=== PATIENT | male | born 1985 | race Two or more races ===

== ENCOUNTER 2018-07-18 16:54 | Emergency (ER) | payer SELFPAY ==
[2018-07-18 17:07] VITALS: BP 128/83
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
== END 2018-07-18 17:44 | disposition home or self-care (01) ==
LOC: JD.ED 16:54
DX: K08.89 Other specified disorders of teeth and supporting structures (principal)
CPT/HCPCS: 99283

== ENCOUNTER 2018-07-18 22:58 | Emergency (ER) | payer SELFPAY ==
[2018-07-18 23:29] VITALS: BP 133/83
[2018-07-19] MEDS ORDERED: cefTRIAXone 1 GM, Lidocaine 1% 2.1 ML IM SCH ×2
[2018-07-19] MEDS ORDERED: Ketorolac 60 MG/2 ML SDV IM ONE (00:01)
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
== END 2018-07-19 00:17 | disposition home or self-care (01) ==
LOC: JD.ED 22:58
DX: K04.7 Periapical abscess without sinus (principal)
CPT/HCPCS: 96372; 99282; J0696; J1885

== ENCOUNTER 2019-02-21 05:53 | Emergency (ER) | payer SELFPAY ==
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
[2019-02-21 08:17] VITALS: BP 117/69
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
== END 2019-02-21 08:20 | disposition home or self-care (01) ==
LOC: JD.ED 05:53
DX: R07.89 Other chest pain (principal); Z90.49 Acquired absence of other specified parts of digestive tract
CPT/HCPCS: 36415; 36600; 71046; 71046-26; 80053; 81001; 82803; 83735; 83880; 84443; 84484; 85007; 85027; 85379; 93005; 93010; 99284; 99285-25

== ENCOUNTER 2019-03-10 22:04 | Emergency (ER) | payer SELFPAY ==
[2019-03-10 22:28] VITALS: BP 133/86; PULSE 63
--- NOTE | 2019-03-10 23:09 | EDM.PDOC ---
ED HPI GENERAL MEDICAL PROBLEM - General Chief Complaint: Abdominal Pain Stated Complaint: abdominal pain Time Seen by Provider: 03/10/19 23:09 Source of Information: Reports: Patient History Limitations: Reports: No Limitations - History of Present Illness INITIAL COMMENTS - FREE TEXT/NARRATIVE: 34-year-old male of [place] descent presents to the ED with a 2 to three-week history of recurrent left lower quadrant abdominal pain. He makes his pain worse by deep palpation in the left lower quadrant. He was seen in the clinic 9 days ago and placed on the 8 day course of Cipro 500 twice a day for suspected diverticulitis. He states however that it didn't make any difference in the pain. It has persisted. Her abscesses had a couple of loose stools. Typically is felt primarily in the left lower quadrant. No radiation to his back. His appetite is good and is been able to eat normally. No nausea or vomiting. No fever or chills. No previous abdominal surgery. She recently started himself on omeprazole 20 mg daily as he was developing gastritis from the amount of Motrin he was taking for pain relief. Is taking the Motrin for back pain as well. He's been having some left-sided chest pain. He had a previous spontaneous pneumothorax requiring thoracotomy many years ago. Fairly had a chest x-ray done in clinic which was normal. Onset: Unknown/Unsure (Has been having problems with intermittent left lower quadrant abdominal pain for 2-3 weeks.) Duration: Week(s):, Getting Worse Location: Reports: Abdomen (Left lower quadrant of the abdomen with no radiation.) Quality: Reports: Ache, Other (Vocational pain is sharp and stabbing with a colicky type component) Severity: Moderate Improves with: Reports: None Worsens with: Reports: Other (Nothing seems to make it worse.) Context: Reports: Other (Spontaneous occurrence). 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: Other (see below) (Just finished an 8 day course of Cipro 500 twice a day yesterday with no improvement in symptoms.) Left Lower Abdominal Pain Score (Numeric/FACES): 4 - Related Data Allergies Allergy/AdvReac Type Severity Reaction Status Date / Time No Known Allergies Allergy Verified 07/18/18 23:29 Home Meds: Home Meds Ibuprofen 200 mg PO DAILY 03/10/19 [History] Omeprazole 0 mg PO DAILY 03/10/19 [History] hydrOXYzine HCl [Hydroxyzine HCl] 25 mg PO BEDTIME 03/10/19 [History] Past Medical History - Past Health History Medical/Surgical History: Denies Medical/Surgical History HEENT History: Reports: None Cardiovascular History: Reports: None Respiratory History: Reports: Other (See Below) (Traumatic hemothorax) Other Respiratory History: Pt states that he had "his lung explode because of his rib." Gastrointestinal History: Reports: GERD, Hiatal Hernia Genitourinary History: Reports: None Other Genitourinary History: erectile disfunction Musculoskeletal History: Reports: None Neurological History: Reports: None Psychiatric History: Reports: None Endocrine/Metabolic History: Reports: None Hematologic History: Reports: None Immunologic History: Reports: None Oncologic (Cancer) History: Reports: None Dermatologic History: Reports: None - Infectious Disease History Infectious Disease History: Reports: None - Past Surgical History Head Surgeries/Procedures: Reports: None Respiratory Surgical History: Reports: Other (See Below) (Had a spontaneous pneumothorax on the left side and required closed thoracostomy drainage this was many years ago.) GI Surgical History: Reports: Appendectomy, Cholecystectomy, Hernia, Inguinal Social & Family History - Family History Family Medical History: Noncontributory - Tobacco Use Smoking Status *Q: Never Smoker - Caffeine Use Caffeine Use: Reports: Coffee - Recreational Drug Use Recreational Drug Use: No - Living Situation & Occupation Living situation: Reports: , with Spouse, with Family (1 child) 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 Denies: No Symptoms, Blood Pressure Problem ( Chronic problem), Claudication, Dyspnea on Exertion, Edema, Lightheadedness, Orthopnea Endocrine: Reports: No Symptoms GI/Abdominal: Reports: Abdominal Pain (Complains of intermittent left lower quadrant abdominal pain worse when he pushes deep on his left lower quadrant. He states he can make it go from a 4 to a 10 out of 10. It doesn't radiate through to his back.), Diarrhea, Nausea, Other. Denies: Constipation, Decreased Appetite, Difficulty Swallowing, Distension, Flatus (One loose bowel movement yesterday.), Hematemesis, Hematochezia, Melena, Stool Incontinence, Vomiting : Reports: No Symptoms (Gets a lot of heartburn.) Musculoskeletal: Reports: No Symptoms Skin: Reports: No Symptoms Neurological: Reports: No Symptoms Psychiatric: Reports: No Symptoms Hematologic/Lymphatic: Reports: No Symptoms Immunologic: Reports: No Symptoms ED EXAM, GI/ABD - Physical Exam Exam: See Below Exam Limited By: No Limitations General Appearance: Alert, WD/WN, No Apparent Distress, Other (Vital signs show he is afebrile temperatures 36.8. Pulse 63 and sinus respiratory to 16 O2 sats are 98% on room air BP is 133/86.) Eyes: Bilateral: Normal Appearance Throat/Mouth: Normal Inspection, Normal Lips, Normal Oropharynx, Other Head: Atraumatic (Tongue is moist ), Normocephalic Neck: Normal Inspection, Supple, Non-Tender, Full Range of Motion. No: Carotid Bruit, Lymphadenopathy (L), Lymphadenopathy (R) Respiratory/Chest: No Respiratory Distress, Lungs Clear, Normal Breath Sounds, No Accessory Muscle Use, Other (Has evidence of a thoracotomy wound left lateral chest.) Cardiovascular: Normal Peripheral Pulses, Regular Rate, Rhythm, No Edema, No Gallop, No Murmur, No Rub, Other (Patient have evidence of a laparoscopic cholecystectomy and appendectomy and apparently has had a right inguinal hernia raphe as well.) GI/Abdominal Exam: Normal Bowel Sounds, Soft, No Abnormal Bruit, Tender. No: Guarding, Rigid (Tenderness in the epigastrium on deep palpation and left lower quadrant of the abdomen without guarding or rebound.), Rebound (Male) Exam: No Hernia. No: Inguinal Lymphadenopathy Back Exam: Normal Inspection, Full Range of Motion, Other (No rib head subluxation identified no muscle spasm.). No: CVA Tenderness (L), CVA Tenderness (R) Extremities: Normal Inspection, Normal Range of Motion, Non-Tender, No Pedal Edema, Normal Capillary Refill Neurological: Alert, Oriented, CN II-XII Intact, Normal Cognition Psychiatric: Anxious Skin Exam: Warm, Dry, Intact, Normal Color, No Rash Course - Vital Signs Last Recorded V/S: Last Vital Signs Temp 36.8 C 03/10/19 22:23 Pulse 63 03/10/19 22:23 Resp 16 03/10/19 22:23 BP 133/86 03/10/19 22:23 Pulse Ox 98 03/10/19 22:23 - Orders/Labs/Meds Orders: Active Orders 24 hr Category Date Time Status Abdomen 1V Flat [CR] Stat Exams 03/10/19 23:08 Taken Abdomen Pelvis wo Cont [CT] Stat Exams 03/11/19 00:12 Taken THYROID PEROXIDASE (TPO) AB [REF] Stat Lab 03/11/19 01:45 Ordered Labs: Laboratory Tests 03/10/19 03/10/19 03/10/19 Range/Units 23:30 23:30 23:30 WBC 6.79 (4.23-9.07) K/mm3 RBC 5.11 (4.63-6.08) M/mm3 Hgb 14.7 (13.7-17.5) gm/L Hct 42.8 (40.1-51.0) % MCV 83.8 (79.0-92.2) fl MCH 28.8 (25.7-32.2) pg MCHC 34.3 (32.2-35.5) g/dl RDW Std Deviation 38.8 (35.1-43.9) fL Plt Count 240 (163-337) K/mm3 MPV 9.9 (9.4-12.3) fl Neutrophils % (Manual) 53 (40-60) % Band Neutrophils % 0 (0-10) % Lymphocytes % (Manual) 36 (20-40) % Atypical Lymphs % 0 % Monocytes % (Manual) 10 (2-10) % Eosinophils % (Manual) 1 (0.8-7.0) % Basophils % (Manual) 0 L (0.2-1.2) Platelet Estimate Adequate Plt Morphology Comment Normal RBC Morph Comment Normal Sodium 140 (136-145) mEq/L Potassium 4.2 (3.5-5.1) mEq/L Chloride 106 (98-107) mEq/L Carbon Dioxide 28 (21-32) mEq/L Anion Gap 10.2 (5-15) BUN 15 (7-18) mg/dL Creatinine 0.8 (0.7-1.3) mg/dL Est Cr Clr Drug Dosing 116.30 mL/min Estimated GFR (MDRD) > 60 (>60) mL/min BUN/Creatinine Ratio 18.8 H (14-18) Glucose 97 (74-106) mg/dL Calcium 9.0 (8.5-10.1) mg/dL Total Bilirubin 0.3 (0.2-1.0) mg/dL AST 16 (15-37) U/L ALT 33 (16-63) U/L Alkaline Phosphatase 76 (46-116) U/L C-Reactive Protein < 0.2 (<1.0) mg/dL Total Protein 7.0 (6.4-8.2) g/dl Albumin 4.0 (3.4-5.0) g/dl Globulin 3.0 gm/dL Albumin/Globulin Ratio 1.3 (1-2) Lipase 166 (73-393) U/L Free T4 1.01 (0.76-1.46) ng/dL TSH 3rd Generation 4.898 H (0.358-3.74) uIU/mL Meds: Medications Discontinued Medications Generic Name Dose Route Start Last Admin Trade Name Freq PRN Reason Stop Dose Admin Sodium Chloride 1,000 mls @ 150 mls/hr 03/10/19 23:15 03/10/19 23:29 Normal Saline IV 150 mls/hr ASDIRECTED FAM Administration Magnesium Citrate 240 ml 03/11/19 02:24 03/11/19 02:43 Citrate Of Magnesia PO 03/11/19 02:25 240 ml ONETIME ONE Administration - Radiology Interpretation Free Text/Narrative:: 34-year-old male presents to the ED with a 2 to three-week history of left lower quadrant abdominal pain. He has difficulty quantifying the pain. He states he can make it worse when he pushes deep in his left lower quadrant. Lysis pain is 4 out of 10 but he can make a tentatively pushes on his left lower quadrant. Phonation a day course of Cipro 500 twice a day with no improvement in his symptoms. History of confirm diverticulitis. He has chronic GERD aggravated recently by the amount of Motrin he's been taking for left- sided chest pain. He is improved after stopping taking the Motrin and taking omeprazole 20 mg daily for the last week. He believes he had one loose stool yesterday he's never passed blood per rectum. Examination reveals bowel active bowel sounds in all 4 quadrants. Benign abdomen on examination with no masses palpable left lower quadrant or left hemiabdomen. I question whether I can palpate his right hemicolon however. There is no inguinal adenopathy or hernias. Plan routine labs to be done. KUB and then proceed likely with CT of the abdomen to rule out diverticulitis. - Re-Assessments/Exams Free Text/Narrative Re-Assessment/Exam: 03/10/19 : 23:30: KUB reveals large amount of gas both in the small bowel and large bowel. There is increased stool throughout the right hemicolon and portions of the transverse colon. The descending colon and rectal vault appeared to be relatively empty. Proceed with CT of the abdomen with oral contrast. 03/11/19 01:46 White count is normal at 6.79. Differential is normal 53% neutrophils and no band cells. Hemoglobin is 14.7 with hematocrit of 42.8. Sodium 140 with potassium of 4.2. Chloride is 106 with a bicarbonate 28. And a gap is 10.2. BUN is 15 with a creatinine 0.8. Estimated GFR is greater than 60. Glucose is 97. Calcium is 9.0. Liver function is normal. C-reactive protein less than 0.2. Total protein is 7.0 with an albumin fraction of 4.0. Please is normal at 166. Free T4 is normal at 1.01. TSH however is mildly elevated at 4.898. Due to his elevated TSH in his complaints of right thyroid lobe pain. May be suffering acute thyroiditis. At present she is euthyroid with a normal free T4. Will have blood sent for thyroid peroxidase antibodies. CT of the abdomen has been completed. Visualized portion of his lungs are clear. He does have a moderate hiatal hernia. Reticulocyte silhouette is normal. Liver appears to be within normal limits without any intraductal dilatation. Gallbladder is absent. Pancreas appears normal. Spleen is mildly lobular but otherwise normal. Both kidneys appear to be within normal limits without any signs of obstructive uropathy. There is a large amount of stool throughout most of the colon intermixed with a lot of air. All bowel appears normal. Appendix is absent. Adrenals show no suspicious nodules. Patient's main problem with abdominal pain is therefore constipation. He will be treated with magnesium citrate 8 ounces by mouth 6 ounces of juice or Gatorade Powerade later this morning. Should provide bowel cleanse and relief of the abdominal pain. Departure - Departure Time of Disposition: 02:25 Disposition: Home, Self-Care 01 Condition: Fair Clinical Impression: Constipation by delayed colonic transit, Elevated TSH, Acute thyroiditis Abdominal pain Qualifiers: Abdominal location: left lower quadrant Qualified Code(s): R10.32 - Left lower quadrant pain GERD (gastroesophageal reflux disease) Qualifiers: Esophagitis presence: with esophagitis Qualified Code(s): K21.0 - Gastro- esophageal reflux disease with esophagitis - Discharge Information *PRESCRIPTION DRUG MONITORING PROGRAM REVIEWED*: Not Applicable *COPY OF PRESCRIPTION DRUG MONITORING REPORT IN PATIENT MARILU: Not Applicable Instructions: Food Choices for Gastroesophageal Reflux Disease, Adult, Hypothyroidism, Constipation, Adult Referrals: PCP,None [Ordering Only Provider] - Forms: ED Department Discharge Additional Instructions: Evaluation in the emergency room tonight in regards to persistent left-sided abdominal pain particularly on pushing on her left lower quadrant for the last 2 -3 weeks. You're on age 8 day course of Cipro which made no difference in regards to the pain. Noted fever or chills. Benign abdominal examination. Found to have very active bowel sounds in all 4 quadrants on examination. Lab tests performed revealed a normal white count and no signs of infection. Markers for infection were also negative. Did testing on your thyroid gland and it revealed a slightly elevated thyroid-stimulating hormone indicating your thyroid gland is struggling a bit to keep up with making thyroid hormone. The free T4 for which is a measurement of the most prominent hormone the thyroid makes is still in the normal range. However she pain in your anterior neck it suggest that you have an infection your thyroid gland which we call acute thyroiditis. Settle down over a period of 3 weeks on its own and the pain will go away. The question is whether the thyroid gland can recover from this inflammation or whether it slowly declined since ability to make thyroid hormone. Will need a blood test about every 3 months i.e. check on the TSH value to see if the thyroid gland is able to maintain normal thyroid hormone production. Therefore you will need to follow-up with Eva Hussein in about a week's time to check on the thyroid peroxidase antibodies that I ordered which is a send out test. She will then set up appropriate follow-up timeframe. CT scan of the abdomen reveals diffuse constipation particularly throughout the right colon and the transverse colon and portions of the truck descending colon on the left side. Of infection are evident. Gallbladder is absent as is the appendix. Treatment is to take magnesium citrate or Citroma 8 ounces mixed with 6 ounces of juice by mouth later this morning. This takes an hour to to work and does not cause any cramping. He will produce 3 or 4 bowel movements and usually ends and some diarrhea. This should clear up the abdominal pain. Follow-up with Eva Hussein next week. Please make an appropriate appointment time for next Friday or . - My Orders Last 24 Hours: My Active Orders 03/10/19 23:08 Abdomen 1V Flat [CR] Stat 03/11/19 00:12 Abdomen Pelvis wo Cont [CT] Stat 03/11/19 01:45 THYROID PEROXIDASE (TPO) AB [REF] Stat - Assessment/Plan Last 24 Hours: My Active Orders 03/10/19 23:08 Abdomen 1V Flat [CR] Stat 03/11/19 00:12 Abdomen Pelvis wo Cont [CT] Stat 03/11/19 01:45 THYROID PEROXIDASE (TPO) AB [REF] Stat
[2019-03-10] MEDS ORDERED: Sodium Chloride 0.9% 1,000 ML IV SCH (23:15)
[2019-03-11] MEDS ORDERED: Magnesium Citrate Solution 296 ML Bottle PO ONE (02:24)
--- NOTE | 2019-03-15 07:59 | CR ---
Abdomen: Supine view of the abdomen was obtained. Comparison: Prior abdominal x-ray of 12/18/15. Bowel gas pattern is normal. Surgical clips are seen within the right abdomen. No abnormal calcifications or soft tissue abnormality is seen. Bony structures appear within normal limits for the patient's age. Impression: 1. Nothing acute is appreciated on supine abdominal x-ray. Diagnostic code #1
--- NOTE | 2019-03-15 07:59 | CT ---
CT abdomen and pelvis Technique: Multiple axial sections were obtained from above the dome of the diaphragm inferiorly through the pubic symphysis. Intravenous and oral contrast was not utilized. Comparison: Prior CT abdomen and pelvis exam of 08/30/15. Findings: Visualized portions of the lung bases show nothing acute. Noncontrast appearance of the liver shows no focal parenchymal abnormality. Spleen appears within normal limits. Adrenal glands show no nodule. Pancreas is within normal limits. Gallbladder is collapsed but shows no calcified gallstones. Aorta shows no aneurysm. No retroperitoneal adenopathy is seen. Kidneys show no abnormal calcifications. No discrete parenchymal finding is seen within either kidney. No ureteral dilatation is seen. No ureteral stone is identified. Appendix not visualized with certainty. No pelvic mass or adenopathy is seen. No free fluid or inflammatory change is noted. No bowel dilatation is seen. Slight increased stool is noted within the colon. Bone window settings were reviewed which show a compression deformity within T9. This appears as a chronic finding. Impression: 1. Mild increased stool within colon. Other findings which are believed to be incidental. 2. Nothing acute is appreciated on noncontrast CT study of the abdomen and pelvis. Diagnostic code #2 I agree with preliminary report from [facility], finalized on 03/11/19, 2:36 AM Central Time
== END 2019-03-11 02:45 | disposition home or self-care (01) ==
LOC: JD.ED 22:04
DX: K21.9 Gastro-esophageal reflux disease without esophagitis (principal); K59.01 Slow transit constipation; E06.0 Acute thyroiditis; R10.32 Left lower quadrant pain; Z79.899 Other long term (current) drug therapy
CPT/HCPCS: 36415; 74018; 74176; 80053; 83690; 84439; 84443; 85007; 85027; 86140; 86376; 96360; 96361; 99284; A9270; J7040; 99283

== ENCOUNTER 2019-03-24 10:11 | Emergency (ER) | payer SELFPAY ==
[2019-03-24 10:38] VITALS: BP 136/86; PULSE 60
--- NOTE | 2019-03-24 12:01 | EDM.PDOC ---
ED HPI GENERAL MEDICAL PROBLEM - General Chief Complaint: ENT Problem Stated Complaint: SORE THROAT Time Seen by Provider: 03/24/19 10:36 Source of Information: Reports: Patient, Old Records, RN Notes Reviewed History Limitations: Reports: No Limitations, Language Barrier (primarily bulgarian speaking, Darshan Mcgarry helps to translate) - History of Present Illness INITIAL COMMENTS - FREE TEXT/NARRATIVE: Patient is a 34-year-old male who presents to the ED for the evaluation of a throat issue. The patient states before a while now he feels as if there is an obstruction when he tries to swallow food. He states that this pain is in his mid throat, and stays in the same area. He states this is a very mild pain. He states that over the last 3 days this has been worsening however. Prior ER notes show that he was seen roughly 2 weeks ago for abdominal pain, however his TSH was found to be elevated, thyroid antibodies were taken at that time, and are within normal limits. He did have a follow-up appointment with his clinic provider, Eva Hussein, in the meantime and was started on prednisone. He has been taking omeprazole daily since before the last ER visit, he states that nothing is really been helping much. The patient has a history of an inguinal hernia, appendectomy and cholecystectomy. The patient denies any fevers or chills, nausea or vomiting, any chest pain or shortness of breath. He states he has felt more fatigued than he normally does. He states that prior to this pain showing up, that he had never felt any sort of pain like this before in his life ever. He states he is able to swallow food and water, however it is just somewhat painful to do so. The patient is primarily Belgian-speaking, our customer quality specialist, Darshan Mcgarry helps to translate the conversation. - Related Data Allergies Allergy/AdvReac Type Severity Reaction Status Date / Time No Known Allergies Allergy Verified 03/24/19 10:27 Home Meds: Home Meds Omeprazole Magnesium [Prilosec Otc] 20 mg PO DAILY 03/24/19 [History] predniSONE [Prednisone] 20 mg PO DAILY 03/24/19 [History] Past Medical History - Past Health History Medical/Surgical History: Denies Medical/Surgical History HEENT History: Reports: None Cardiovascular History: Reports: None Respiratory History: Reports: Other (See Below) Other Respiratory History: Pt states that he had "his lung explode because of his rib." Gastrointestinal History: Reports: GERD, Hiatal Hernia Genitourinary History: Reports: None Other Genitourinary History: erectile disfunction Musculoskeletal History: Reports: None Neurological History: Reports: None Psychiatric History: Reports: None Endocrine/Metabolic History: Reports: Hypothyroidism Hematologic History: Reports: None Immunologic History: Reports: None Oncologic (Cancer) History: Reports: None Dermatologic History: Reports: None - Infectious Disease History Infectious Disease History: Reports: None - Past Surgical History Head Surgeries/Procedures: Reports: None Respiratory Surgical History: Reports: Other (See Below) GI Surgical History: Reports: Appendectomy, Cholecystectomy, Hernia, Inguinal Social & Family History - Family History Family Medical History: Noncontributory - Caffeine Use Caffeine Use: Reports: Coffee - Recreational Drug Use Recreational Drug Use: No - Living Situation & Occupation Living situation: Reports: , with Spouse, with Family (1 child) 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 Denies: Throat Swelling Respiratory: Denies: Shortness of Breath Cardiovascular: Denies: Chest Pain Endocrine: Reports: Other (hypothyroidism, elevates TSH at last ER visit 2 weeks ago.) GI/Abdominal: Denies: Nausea, Vomiting : Reports: No Symptoms Musculoskeletal: Reports: No Symptoms Skin: Reports: No Symptoms Neurological: Reports: No Symptoms Psychiatric: Reports: No Symptoms Hematologic/Lymphatic: Reports: No Symptoms Immunologic: Reports: No Symptoms ED EXAM, ENT - Physical Exam Exam: See Below Exam Limited By: No Limitations General Appearance: Alert, WD/WN, No Apparent Distress Eye Exam: Bilateral Eye: EOMI, Normal Inspection, PERRL Mouth/Throat: Normal Inspection, Normal Gums, Normal Lips, Normal Oropharynx, Normal Teeth Head: Atraumatic, Normocephalic Neck: Normal Inspection, Supple, Non-Tender, Full Range of Motion Respiratory/Chest: No Respiratory Distress, Lungs Clear, Normal Breath Sounds, No Accessory Muscle Use, Chest Non-Tender Cardiovascular: Normal Peripheral Pulses, Regular Rate, Rhythm, No Murmur GI/Abdominal: Normal Bowel Sounds, Soft, Non-Tender, No Distention, No Mass Back: Normal Inspection, Full Range of Motion Extremities: Normal Inspection, Normal Capillary Refill Neurological: Alert, Oriented, Normal Cognition, No Motor/Sensory Deficits Psychiatric: Normal Affect, Normal Mood Skin: Warm, Dry, Intact, Normal Color, No Rash Lymphatic: No Adenopathy Course - Vital Signs Last Recorded V/S: Last Vital Signs Temp 97.4 F 03/24/19 10:28 Pulse 60 03/24/19 10:28 Resp 16 03/24/19 10:28 BP 136/86 03/24/19 10:28 Pulse Ox 98 03/24/19 10:28 - Orders/Labs/Meds Labs: Laboratory Tests 03/24/19 03/24/19 Range/Units 11:24 11:24 WBC 9.28 H (4.23-9.07) K/mm3 RBC 5.37 (4.63-6.08) M/mm3 Hgb 15.2 (13.7-17.5) gm/dl Hct 44.9 (40.1-51.0) % MCV 83.6 (79.0-92.2) fl MCH 28.3 (25.7-32.2) pg MCHC 33.9 (32.2-35.5) g/dl RDW Std Deviation 39.3 (35.1-43.9) fL Plt Count 253 (163-337) K/mm3 MPV 9.7 (9.4-12.3) fl Neut % (Auto) 65.3 (34.0-67.9) % Lymph % (Auto) 25.1 (21.8-53.1) % [place] % (Auto) 8.8 (5.3-12.2) % Eos % (Auto) 0.3 L (0.8-7.0) Baso % (Auto) 0.1 (0.1-1.2) % Neut # (Auto) 6.05 H (1.78-5.38) K/mm3 Lymph # (Auto) 2.33 (1.32-3.57) K/mm3 [place] # (Auto) 0.82 (0.30-0.82) K/mm3 Eos # (Auto) 0.03 L (0.04-0.54) K/mm3 Baso # (Auto) 0.01 (0.01-0.08) K/mm3 Sodium 141 (136-145) mEq/L Potassium 3.6 (3.5-5.1) mEq/L Chloride 103 (98-107) mEq/L Carbon Dioxide 31 (21-32) mEq/L Anion Gap 10.6 (5-15) BUN 13 (7-18) mg/dL Creatinine 0.8 (0.7-1.3) mg/dL Est Cr Clr Drug Dosing 107.92 mL/min Estimated GFR (MDRD) > 60 (>60) mL/min BUN/Creatinine Ratio 16.3 (14-18) Glucose 91 (74-106) mg/dL Calcium 9.5 (8.5-10.1) mg/dL Total Bilirubin 0.5 (0.2-1.0) mg/dL AST 16 (15-37) U/L ALT 47 (16-63) U/L Alkaline Phosphatase 83 (46-116) U/L Total Protein 7.4 (6.4-8.2) g/dl Albumin 4.2 (3.4-5.0) g/dl Globulin 3.2 gm/dL Albumin/Globulin Ratio 1.3 (1-2) TSH 3rd Generation 2.157 (0.358-3.74) uIU/mL - Re-Assessments/Exams Free Text/Narrative Re-Assessment/Exam: 03/24/19 10:45 Patient presents to the ED for evaluation of a throat issue. He was seen in this ER roughly 2 weeks ago, for abdominal pain, however a TSH was done at this time due to his throat pain present then. His TSH was elevated. Thyroid antibodies were obtained and a free T4 level was obtained and these are both within normal limits. Of note the patient was thought to have acute thyroiditis at the last ER visit. The patient states that he was seen in the clinic by his provider and was started on a course of prednisone, but he does not think this is helping much. He is taking omeprazole daily, some of the symptoms could be related to GERD, I did order a CBC, CMP and a repeat TSH to see if the TSH is still elevated. 03/24/19 12:50 Patient's labs have returned, there are no major acute abnormalities, his TSH is within normal limits as well. At this time there is no sort of throat obstruction that the patient is having, I will provide him follow up with his provider in the clinic for a possible endoscopy to rule out stricture. He will be advised to keep taking his medications as prescribed as the prednisone might take a little time to kick in. Departure - Departure Time of Disposition: 12:53 Disposition: Home, Self-Care 01 Condition: Fair Clinical Impression: Dysphagia Qualifiers: Dysphagia type: other dysphagia Qualified Code(s): R13.19 - Other dysphagia - Discharge Information *PRESCRIPTION DRUG MONITORING PROGRAM REVIEWED*: No *COPY OF PRESCRIPTION DRUG MONITORING REPORT IN PATIENT MARILU: No Instructions: Dysphagia Eating Plan, Bite Size Food, Upper Endoscopy Referrals: PCP,None [Ordering Only Provider] - Forms: ED Department Discharge Additional Instructions: You were evaluated in the ED today for your difficulty swallowing. Your laboratory evaluation was within normal limits, your TSH has returned to a normal level. Your thyroid levels that were sent out from your last ER visit are also within normal limits, this is reassuring. At this time you are able to swallow liquids okay, and having mild pain with swallowing foods, recommend that you take small bites of food and chew thoroughly to ensure that you are not having difficulty swallowing food. Recommend that you keep taking the omeprazole as previously started, and keep taking the prednisone as prescribed by your primary care provider, as this can take a few days to work appropriately. Please follow up with Eva Hussein in our clinic within the next week regarding a possible upper endoscopy to rule out some sort of stricture in your throat. Please return to the ED if your symptoms change or worsen.
== END 2019-03-24 13:04 | disposition home or self-care (01) ==
LOC: JD.ED 10:11
DX: R13.19 Other dysphagia (principal); K21.9 Gastro-esophageal reflux disease without esophagitis; Z79.899 Other long term (current) drug therapy
CPT/HCPCS: 36415; 80053; 84443; 85025; 99284

== ENCOUNTER 2019-04-04 21:25 | Emergency (ER) | payer SELFPAY ==
[2019-04-04 21:37] VITALS: BP 137/87; PULSE 62
--- NOTE | 2019-04-04 22:01 | EDM.PDOC ---
ED HPI GENERAL MEDICAL PROBLEM - General Chief Complaint: ENT Problem Stated Complaint: SORE THROAT Time Seen by Provider: 04/04/19 22:00 - History of Present Illness INITIAL COMMENTS - FREE TEXT/NARRATIVE: 34-year-old male presents emergency room with sore throat and difficulty eating and drinking. This is been going on for several weeks sounds like he recently had a thyroid ultrasound that was unrevealing. The patient was taken omeprazole stopped this about a week ago it didn't seem to make much of a difference. The patient is having no trouble clearing secretions he just has some discomfort with eating and drinking. He describes a burning sensation in his upper pharynx. Denies fevers or chills no breathing difficulties or shortness of breath. Other Treatments BUSINESS PROGRAMMER: tylennol and motrin Throat Pain Score (Numeric/FACES): 3 Bilateral Ear Pain Score (Numeric/FACES): 7 - Related Data Allergies Allergy/AdvReac Type Severity Reaction Status Date / Time No Known Allergies Allergy Verified 03/24/19 10:27 Home Meds: Home Meds . [No Known Home Meds] 04/04/19 [History] Past Medical History - Past Health History Medical/Surgical History: Denies Medical/Surgical History HEENT History: Reports: None Cardiovascular History: Reports: None Respiratory History: Reports: Other (See Below) Other Respiratory History: Pt states that he had "his lung explode because of his rib." Gastrointestinal History: Reports: GERD, Hiatal Hernia Genitourinary History: Reports: None Other Genitourinary History: erectile disfunction Musculoskeletal History: Reports: None Neurological History: Reports: None Psychiatric History: Reports: None Endocrine/Metabolic History: Reports: Hypothyroidism Hematologic History: Reports: None Immunologic History: Reports: None Oncologic (Cancer) History: Reports: None Dermatologic History: Reports: None - Infectious Disease History Infectious Disease History: Reports: None - Past Surgical History Head Surgeries/Procedures: Reports: None Respiratory Surgical History: Reports: Other (See Below) GI Surgical History: Reports: Appendectomy, Cholecystectomy, Hernia, Inguinal Social & Family History - Family History Family Medical History: Noncontributory - Tobacco Use Smoking Status *Q: Former Smoker Used Tobacco, but Quit: Yes Month/Year Tobacco Last Used: 3 yrs - Caffeine Use Caffeine Use: Reports: Coffee - Recreational Drug Use Recreational Drug Use: No - Living Situation & Occupation Living situation: Reports: , with Spouse, with Family (1 child) 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 Denies: Constipation, Diarrhea, Nausea, Vomiting : Reports: No Symptoms Musculoskeletal: Reports: No Symptoms Skin: Reports: No Symptoms Neurological: Reports: No Symptoms ED EXAM, ENT - Physical Exam Exam: See Below Exam Limited By: No Limitations General Appearance: Alert, No Apparent Distress Ears: Normal External Exam, Normal Canal, Hearing Grossly Normal, Normal TMs Nose: Normal Inspection, Normal Mucousa, No Blood Mouth/Throat: Normal Inspection, Normal Gums, Normal Lips, Normal Oropharynx, Normal Teeth Head: Atraumatic, Normocephalic Neck: Normal Inspection, Supple, Non-Tender, Full Range of Motion Respiratory/Chest: No Respiratory Distress, Lungs Clear, Normal Breath Sounds, No Accessory Muscle Use, Chest Non-Tender Cardiovascular: Normal Peripheral Pulses, Regular Rate, Rhythm, No Edema GI/Abdominal: Normal Bowel Sounds, Soft, Non-Tender Course - Vital Signs Last Recorded V/S: Last Vital Signs Temp 36.8 C 04/04/19 21:36 Pulse 62 04/04/19 21:36 Resp 20 04/04/19 21:36 BP 137/87 04/04/19 21:36 Pulse Ox 98 04/04/19 21:36 - Orders/Labs/Meds Orders: Active Orders 24 hr Category Date Time Status CULTURE STREP A CONFIRMATION [] Stat Lab 04/04/19 22:02 Results STREP SCRN A RAPID W CULT CONF [RM] Stat Lab 04/04/19 22:02 Results - Re-Assessments/Exams Free Text/Narrative Re-Assessment/Exam: 04/04/19 22:39 Sounds like the clinic is trying to get him scheduled for an EGD in the meantime will order a barium swallow I've advised the patient that he restart his omeprazole. Departure - Departure Time of Disposition: 22:30 Disposition: Home, Self-Care 01 Clinical Impression: Pharyngitis, Esophagitis - Discharge Information Referrals: Eva Hussein PA-C [Primary Care Provider] - Forms: ED Department Discharge Additional Instructions: Return to the emergency room with any questions problems or worsening symptoms. Follow-up with Eva Hussein this next week. We have put in an order for a barium swallow to help evaluate what is going on in your throat. Have the endoscopy done as soon as scheduled. Restart your omeprazole take one daily 30-60 minutes before your morning meal. We have a throat culture ordered for you we should have the results back in 24- 48 hours - My Orders Last 24 Hours: My Active Orders 04/04/19 22:02 CULTURE STREP A CONFIRMATION [RM] Stat STREP SCRN A RAPID W CULT CONF [RM] Stat - Assessment/Plan Last 24 Hours: My Active Orders 04/04/19 22:02 CULTURE STREP A CONFIRMATION [RM] Stat STREP SCRN A RAPID W CULT CONF [RM] Stat
== END 2019-04-04 22:53 | disposition home or self-care (01) ==
LOC: JD.ED 21:25
DX: J02.9 Acute pharyngitis, unspecified (principal); K20.9 Esophagitis, unspecified; Z87.891 Personal history of nicotine dependence
CPT/HCPCS: 87081; 87430; 99283

== ENCOUNTER 2019-05-04 07:02 | Day surgery (SDC) | payer SELFPAY ==
[~2019-05-04 07:02] MED LIST: Lactated Ringers 1,000 ML IV SCH; Lidocaine 1% 6 ML ONE; Lidocaine 1%/Sod Bicarbonate in NS 8.4% 1 ML Syringe IDERM PRN; Midazolam 1 MG/ML 2 ML SDV ONE; Propofol 200 MG/20 ML SDV ONE; Sodium Chloride 0.9% 10 ML Syringe FLUSH PRN; fentaNYL 100 MCG/2 ML SDV ONE
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
[2019-05-04] MEDS ORDERED: Lidocaine 1% 2 ML ONE (08:18)
--- NOTE | 2019-05-04 08:32 | PCM48HPAN ---
Post Anesthesia Note - EVALUATION WITHIN 48HRS OF ANESTHETIC Vital Signs in Normal Range: Yes Patient Participated in Evaluation: Yes Respiratory Function Stable: Yes Airway Patent: Yes Cardiovascular Function Stable: Yes Hydration Status Stable: Yes Pain Control Satisfactory: Yes Nausea and Vomiting Control Satisfactory: Yes Mental Status Recovered: Yes Vital Signs: Last Vital Signs Temp 36.9 C 05/04/19 07:10 Pulse 83 05/04/19 07:10 Resp 16 05/04/19 07:10 BP 130/84 05/04/19 07:10 Pulse Ox 99 05/04/19 07:10
--- NOTE | 2019-05-04 08:35 | PCM.PRNOTE ---
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 No other abnormalities noted. Biopsies obtained with cold forceps. No complications. Detailed Report: The patient underwent MAC anesthesia after being placed in the left lateral decubitus position. A bite block was placed. Timeout performed. The endoscope was inserted into the mouth and passed down as far as the second portion of the duodenum. The duodenum was normal without evidence of inflammation, ulceration or mass. The pylorus, incisura, body and fundus appeared normal. There was no hiatal hernia noted. The Z-line of the esophagus was visualized, there was no evidence of esophagitis or metaplasia. At the base of the tongue superior to the epiglottis, there was whitish plaque reminiscent of thrush, with some larger than expected papular lesions. No ulceration or erythema noted. Biopsies with cold forceps were obtained. Hemostasis was satisfactory. The scope was completely withdrawn and the patient awoke without issues. No complications. Recommend nystatin rinse, STD testing including HIV, f/u biopsy results and possible referral to ENT specialist. Pool Jha MD General Surgery
[2019-05-04 09:20] VITALS: BP 110/70; PULSE 76
[2019-05-04 15:24] LABS: C. TRACHOMATIS BY PCR NOT DETECTED; N. GONORRHOEAE BY PCR NOT DETECTED
[2019-05-04] MEDS ORDERED: Prochlorperazine 10 MG/2 ML SDV IVPUSH PRN (20:35)
[2019-05-04] MEDS ORDERED: fentaNYL 100 MCG/2 ML SDV IVPUSH PRN (20:35)
[2019-05-04] MEDS ORDERED: HYDROmorphone 0.5 MG/0.5 ML Syringe IVPUSH PRN (20:35)
[2019-05-04] MEDS ORDERED: Midazolam 1 MG/ML 2 ML SDV IVPUSH PRN (20:35)
== END 2019-05-04 09:17 | disposition home or self-care (01) ==
LOC: JD.SDS 07:02
PROVIDERS: ATTEND Surgery
DX: D10.1 Benign neoplasm of tongue (principal); B96.89 Other specified bacterial agents as the cause of diseases classified elsewhere; F41.9 Anxiety disorder, unspecified; G47.33 Obstructive sleep apnea (adult) (pediatric); N52.9 Male erectile dysfunction, unspecified; Z87.891 Personal history of nicotine dependence
CPT/HCPCS: 00731; 36415; 87491; 87591; G0433; J2001; J2250; J2704; J3010; J7120